=== PATIENT | male | born 1990 | race African-American/Black ===

== ENCOUNTER 2016-02-23 19:55 | Emergency (ER) | payer SELFPAY ==
[~2016-02-23] VITALS: Ht 185.4 cm; Wt 120.4 kg
[~2016-02-23 19:55] MED LIST: PRED20 PO; ROBA750T3 PO
[2016-02-23 20:03] VITALS: BP 138/88; PULSE 74; RESP 16; TEMP 98.9; O2SAT 100
[2016-02-23 20:55] LABS: BLOOD, URINE NEG (NEG); GLUCOSE,URINE NEG (NEG); KETONE, URINE NEG (NEG); NITRITE,URINE NEG (NEG)
[2016-02-23] MEDS ORDERED: SODIUM CHLOR 0.9% 1000 ML INJ 1,000 ML IV SCH (20:58)
[2016-02-23] MEDS ORDERED: MORPHINE SULFATE 4 MG/ML INJ IV PUSH ONE (21:00)
[2016-02-23] MEDS ORDERED: ONDANSETRON HCL 4 MG/2 ML VIAL IVP ONE (21:00)
--- NOTE | 2016-02-23 21:02 | PD ---
HPI Chief Complaint: Abdominal Pain Time Seen by Provider: 20:59 Travel History International Travel<30 days: No Contact w/Intl Traveler<30days: No Traveled to known affect area: No History of Present Illness HPI 25-year-old male that presents to the ED for evaluation of left-sided upper abdominal pain to most of the flank. Per patient she's had this for about a week but is worsening. Per patient he feels like a burning sensation. He denies any rashes. Per patient he does have some right upper quadrant pain but mostly on the left. Nothing makes it better worse. No nausea or vomiting. No bowel movement or urinary issues. History of kidney stones or surgeries to the abdomen. He has no allergies to medication. He hasn't taken anything for this. He has not seen anybody for this. Pain is 7 out of 10. PFSH Past Medical History Medical History: Denies Significant Hx Diminished Hearing: No Immunizations Current: Yes Tetanus Vaccination: > 5 Years Influenza Vaccination: No Past Surgical History Surgical History: No Previous Surgery Social History Alcohol Use: Yes (SOCIALLY) Tobacco Use: No Substance Use: No Allergies-Medications (Allergen,Severity, Reaction): Coded Allergies: No Known Allergies (Unverified , 02/23/16) Reported Meds & Prescriptions Reported Meds & Active Scripts Active No Active Prescriptions or Reported Medications Review of Systems Except as stated in HPI: all other systems reviewed are Neg Physical Exam Narrative GENERAL: SKIN: Warm and dry. HEAD: Atraumatic. Normocephalic. EYES: Pupils equal and round. No scleral icterus. No injection or drainage. ENT: No nasal bleeding or discharge. Mucous membranes pink and moist. Tongue is midline. No uvula deviation. NECK: Trachea midline. No JVD. CARDIOVASCULAR: Regular rate and rhythm. RESPIRATORY: No accessory muscle use. Clear to auscultation. Breath sounds equal bilaterally. GASTROINTESTINAL: Abdomen soft, tender to palpation on the left upper quadrant, nondistended. Hepatic and splenic margins not palpable. No CVA tenderness. MUSCULOSKELETAL: Extremities without clubbing, cyanosis, or edema. No obvious deformities. Full range of motion of the upper and lower extremities bilaterally. 2+ pulses bilaterally. NEUROLOGICAL: Awake and alert. No obvious cranial nerve deficits. Motor grossly within normal limits. Five out of 5 muscle strength in the arms and legs. Normal speech. PSYCHIATRIC: Appropriate mood and affect; insight and judgment normal. Data Data Last Documented VS Vital Signs Date Time Temp Pulse Resp B/P Pulse Ox O2 Delivery O2 Flow Rate FiO2 02/23/16 21:50 16 02/23/16 20:45 02/23/16 20:03 98.9 74 100 Orders Urinalysis - C+S If Indicated (02/23/16 20:49) Complete Blood Count With Diff (02/23/16 20:55) Comprehensive Metabolic Panel (02/23/16 20:55) Lipase (02/23/16 20:55) Iv Access Insert/Monitor (02/23/16 20:55) Oximetry (02/23/16 20:55) Morphine Inj (Morphine Inj) (02/23/16 21:00) Ondansetron Inj (Zofran Inj) (02/23/16 21:00) Sodium Chlor 0.9% 1000 Ml Inj (Ns 1000 M (02/23/16 20:58) Ct Abd/Pel W Iv Contrast(Rout) (02/23/16 21:14) Iohexol 300 Inj (Rad Ct) (Omnipaque 300 (02/23/16 21:48) Pantoprazole Inj (Protonix Inj) (02/23/16 22:15) Famotidine Inj (Pepcid Inj) (02/23/16 22:15) Labs Laboratory Tests Test 02/23/16 02/23/16 20:11 21:30 Urine Color STRAW Urine Turbidity CLEAR Urine pH 6.0 Urine Specific Lorenzo 1.017 Urine Protein NEG mg/dL Urine Glucose (UA) NEG mg/dL Urine Ketones NEG mg/dL Urine Occult Blood NEG Urine Nitrite NEG Urine Bilirubin NEG Urine Leukocyte Esterase NEG Urine WBC 0-2 /hpf Urine Squamous Epithelial 0-5 /hpf Cells Microscopic Urinalysis Comment CULT NOT INDICATED White Blood Count 4.9 TH/MM3 Red Blood Count 5.89 MIL/MM3 Hemoglobin 16.3 GM/DL Hematocrit 48.7 % Mean Corpuscular Volume 82.7 FL Mean Corpuscular Hemoglobin 27.7 PG Mean Corpuscular Hemoglobin 33.5 % Concent Red Cell Distribution Width 12.9 % Platelet Count 190 TH/MM3 Mean Platelet Volume 8.8 FL Neutrophils (%) (Auto) 42.6 % Lymphocytes (%) (Auto) 43.0 % Monocytes (%) (Auto) 7.0 % Eosinophils (%) (Auto) 5.9 % Basophils (%) (Auto) 1.5 % Neutrophils # (Auto) 2.1 TH/MM3 Lymphocytes # (Auto) 2.1 TH/MM3 Monocytes # (Auto) 0.3 TH/MM3 Eosinophils # (Auto) 0.3 TH/MM3 Basophils # (Auto) 0.1 TH/MM3 CBC Comment DIFF FINAL Differential Comment Sodium Level 141 MEQ/L Potassium Level 4.1 MEQ/L Chloride Level 104 MEQ/L Carbon Dioxide Level 28.9 MEQ/L Anion Gap 8 MEQ/L Blood Urea Nitrogen 19 MG/DL Creatinine 1.30 MG/DL Estimat Glomerular Filtration 80 ML/MIN Rate Random Glucose 84 MG/DL Calcium Level 8.8 MG/DL Total Bilirubin 0.4 MG/DL Aspartate Amino Transf 15 U/L (AST/SGOT) Alanine Aminotransferase 23 U/L (ALT/SGPT) Alkaline Phosphatase 49 U/L Total Protein 7.3 GM/DL Albumin 3.8 GM/DL Lipase 159 U/L MDM Medical Decision Making Medical Screen Exam Complete: Yes Emergency Medical Condition: Yes Medical Record Reviewed: Yes Interpretation(s) CT of the abdomen show a left renal cyst, sign of acute disease. CBC, LFTs, BMP and UA were essentially unremarkable. Lipase unremarkable. Differential Diagnosis Abdominal pain versus gastritis versus gastroenteritis versus peptic ulcer disease versus kidney stone versus pancreatitis Narrative Course 25-year-old male that presents to the ED for evaluation of left upper quadrant abdominal pain. Patient was properly examined and was found to have signs and symptoms consistent with abdominal discomfort. Unclear etiology at this time. Different etiologies are in the differential. At this time I recommend labs and IV fluids and pain medication. Depending on labs will try scan. Labs showed no sign of acute disease. CT was negative for this as well. Patient does have a left renal cyst. Case was discussed in my attending who agrees with plan. Patient likely has peptic ulcer disease/gastritis. Patient does tell me after evaluation that he did have some spicy food yesterday that seemed to have made the pain worse. At this time I gave patient IV dose of Pepcid as well as Protonix to help with his symptoms. Patient feels improved. Patient will be sent home with prescription for Zantac and Prilosec. He was instructed to follow with GI specialist. Limit spicy foods as well as alcohol. See ED for any worsening symptoms. Follow up with PCP. Diagnosis Primary Impression: PUD (peptic ulcer disease) Patient Instructions: General Instructions, Narcotic given in the ED Additional Instructions: Stay away from ascitic foods including spicy foods. Stay away from alcohol as this could worsen the symptoms. Per family do this until feeling better. Once feeling better limit how much you take of this. Follow with GI specialist. See ED worsening symptoms. Med/Other Pt SpecificInfo: Prescription(s) given Scripts Ranitidine (Zantac 150 Maximum Strength)150 Mg [id number] Mg PO BID #20 TAB Prov:Dk Pinon MD 02/23/16 Omeprazole (Prilosec)20 Mg Cap20 Mg PO DAILY #30 CAP Ref 0 Prov:Dk Pinon MD 02/23/16 Disposition: 01 DISCHARGE HOME Condition: Dinesh Quesada Feb 23, 2016 21:02
[2016-02-23 21:05] LABS: URINE COLOR STRAW (YELLW/STRAW)
[2016-02-23 21:06] LABS: COMMENT (UR) CULT NOT INDICATED; CULTURE IF INDICATED CULT NOT INDICATED; SQUAMOUS EPITHELIAL CELL URINE 0-5 /hpf (0-5); WBC, URINE 0-2 /hpf (0-5)
[2016-02-23 21:42] LABS: AUTOMATED NEUTROPHIL # 2.1 TH/MM3 (1.8-7.7); BASOPHIL # 0.1 TH/MM3 (0-0.2); BASOPHIL % 1.5 % (0.0-2.0); EOSINOPHIL # 0.3 TH/MM3 (0-0.4); EOSINOPHIL % 5.9 % (0.0-4.0); HEMATOCRIT 48.7 % (39.0-51.0); HEMO FLAGS DIFF FINAL; LYMPHOCYTE # 2.1 TH/MM3 (1.0-4.8); MEAN CELL VOLUME 82.7 FL (80.0-100.0); MEAN CORPUSCULAR HEMOGLOBIN 27.7 PG (27.0-34.0); MEAN CORPUSCULAR HGB CONC 33.5 % (32.0-36.0); NEUT % 42.6 % (16.0-70.0); PLATELET COUNT 190 TH/MM3 (150-450); RED BLOOD COUNT 5.89 MIL/MM3 (4.50-5.90); RED CELL DISTRIBUTION WIDTH 12.9 % (11.6-17.2); WHITE BLOOD COUNT 4.9 TH/MM3 (4.0-11.0)
[2016-02-23] MEDS ORDERED: IOHEXOL 300 MG/ML 100 ML BTL (for Rad CT) IV ONE (21:48)
[2016-02-23 21:49] LABS: CHLORIDE 104 MEQ/L (98-107); POTASSIUM 4.1 MEQ/L (3.5-5.1); SODIUM (NA) 141 MEQ/L (136-145)
[2016-02-23 21:53] LABS: ANION GAP 8 MEQ/L (5-15); BICARBONATE 28.9 MEQ/L (21.0-32.0); BLOOD UREA NITROGEN 19 MG/DL (7-18)
[2016-02-23 21:56] LABS: ALT (GPT) 23 U/L (12-78); AST (GOT) 15 U/L (15-37); GLOMERULAR FILTRATION RATE 80 ML/MIN (>89)
[2016-02-23 21:57] LABS: TOTAL BILIRUBIN ADULT 0.4 MG/DL (0.2-1.0)
[2016-02-23 21:59] LABS: ALKALINE PHOSPHATASE 49 U/L (45-117)
--- NOTE | 2016-02-23 22:02 | RADHPO ---
EXAM DATE/TIME: 02/23/2016 21:43 [facility] COMPARISON: No previous studies available for comparison. INDICATIONS : Left upper quadrant abdomen pain. IV CONTRAST: 100 cc Omnipaque 300 (iohexol) IV ORAL CONTRAST: No oral contrast ingested. RADIATION DOSE: 22.08 CTDIvol (mGy) MEDICAL HISTORY : None SURGICAL HISTORY : None. ENCOUNTER: Initial ACUITY: 1 day PAIN SCALE: 8/10 LOCATION: Left upper quadrant abdomen TECHNIQUE: Volumetric scanning of the abdomen and pelvis was performed. Using automated exposure control and ad justment of the mA and/or kV according to patient size, radiation dose was kept as low as reasonably achievable to obtain optimal diagnostic quality images. FINDINGS: LOWER LUNGS: The visualized lower lungs are clear. LIVER: Homogeneous density without lesion. There is no dilation of the biliary tree. No calcified gallston es. SPLEEN: Normal size without lesion. PANCREAS: Within normal limits. KIDNEYS: Normal in size and shape. There is no mass, stone or hydronephrosis. A 1.4 cm left renal low-density along the upper pole. ADRENAL GLANDS: Within normal limits. VASCULAR: There is no aortic aneurysm. BOWEL/MESENTERY: The stomach, small bowel, and colon demonstrate no acute abnormality. There is no free intraperitone al air or fluid. Appendix is normal. ABDOMINAL WALL: Within normal limits. RETROPERITONEUM: There is no lymphadenopathy. BLADDER: No wall thickening or mass. REPRODUCTIVE: Within normal limits. INGUINAL: There is no lymphadenopathy or hernia. MUSCULOSKELETAL: Within normal limits for patient age. CONCLUSION: 1. No acute inflammatory process. 2. Left renal cyst. Cyrus Frances MD on February 23, 2016 at 21:56 Board Certified Radiologist. This report was verified electronically.
[2016-02-23] MEDS ORDERED: ZANTTAB PO (22:14)
[2016-02-23] MEDS ORDERED: PRIL20CA9 PO (22:14)
[2016-02-23] MEDS ORDERED: FAMOTIDINE 20 MG/2 ML VIAL IV PUSH ONE (22:15)
[2016-02-23] MEDS ORDERED: PANTOPRAZOLE SODIUM 40 MG VIAL IV PUSH ONE (22:15)
[2016-02-23 22:28] VITALS: BP 115/67; PULSE 65; RESP 16; O2SAT 96
[2016-02-23 22:51] VITALS: RESP 18; O2SAT 98
== END 2016-02-23 22:55 | disposition home or self-care (01) ==
LOC: PHED 19:55 → PHEFT 22:55
DX: K27.9 Peptic ulcer, site unspecified, unspecified as acute or chronic, without hemorrhage or perforation (principal)
CPT/HCPCS: 74177; 80053; 81001; 83690; 85025; 96361; 96374; 96375; 99284; C9113; J2270; J2405; J7030; Q9967